=== PATIENT | female | born 1960 | race Caucasian/White ===

== ENCOUNTER 2017-07-26 05:46 | Day surgery (SDC) | payer OTHER ==
[2017-07-25 13:27] VITALS: BMI 26.6
[2017-07-26] MEDS ORDERED: Lidocaine 1% w/Epinephrine 1:200K 30 ML VIAL ONE (06:36)
[2017-07-26] MEDS ORDERED: methylPREDNISolone Acetate 40 mg/ml Vial ONE (06:36)
[2017-07-26] MEDS ORDERED: Lidocaine 1% (PF) 30 ML VIAL ONE (06:36)
[2017-07-26] MEDS ORDERED: Fentanyl 100 MCG/2 ML VIAL ONE (06:42)
[2017-07-26 06:46] LABS: Mean Platelet Volume 7.9 fL (7.4-10.4); Red Blood Cell (RBC) Count 4.65 mill/uL (4.20-5.40); White Blood Cell (WBC) Count 5.6 thou/uL (4.8-10.8)
[2017-07-26] MEDS ORDERED: CEFAZOLIN/Water 2 GM/20 ML SYRINGE ONE (06:57)
[2017-07-26] MEDS ORDERED: Midazolam HCl 2 mg/2 ml Vial ONE (07:05)
[2017-07-26] MEDS ORDERED: Promethazine HCl 25 MG/ML VIAL ONE (07:10)
[2017-07-26] MEDS ORDERED: Ondansetron HCl/PF 4 MG/2 ML Vial ONE (07:12)
--- NOTE | 2017-07-26 08:19 | OP ---
DATE OF PROCEDURE: 07/26/2017 PREOPERATIVE DIAGNOSES: 1. Right thumb carpometacarpal arthritis. 2. Right carpal tunnel syndrome. POST OPERATIVE DIAGNOSES: 1. Right thumb carpometacarpal arthritis. 2. Right carpal tunnel syndrome. PROCEDURES PERFORMED: 1. Right thumb carpometacarpal joint steroid injection. 2. Right open carpal tunnel release. 3. Placement of short arm volar splint, right upper extremity. SURGEON: Edison Olmedo M.D. ATMOSPHERIC DRIER TENDER: None. BLOOD LOSS: Minimal. COMPLICATIONS: None. ANESTHESIA: She had TIVA with local. DISPOSITION: She went to day stay in stable condition. INDICATIONS: A 56-year-old female who comes in with a long-term carpal tunnel syndrome and pain in h er CMC joint of the right thumb. At this time, she opted for surgery. DESCRIPTION OF PROCEDURE: After all appropriate consent forms were explained and signed, she was valerie en back to the operating room and at this time was given TIVA with local. Tourniquet was placed on t he right arm and the arm was prepped and draped in the standard surgical fashion. At this time, a ne edle was used to localize the right thumb CMC joint and once it was localized, 40 mg of Depo-Medrol w as injected without complication. We then turned our attention to the carpal tunnel release. Incisi on was drawn out and infiltrated with plain lidocaine. Limb was exsanguinated and the tourniquet was taken up to 250 mmHg. At this time, using Loupe magnification, a 15 blade was used to incise down t hrough skin. Bipolar cautery was used to coagulate any brisk venous bleeding. We then placed a smal l hemostat to protect the underlying median nerve and transected the transverse carpal ligament using multiple 15 blades as well as scissors. Once this was done, a small finger was inserted to palpate for any remaining bands. At this time, a moist Ray-Liban sponge was placed into the wound. Tourniquet was let down and pressure was held. Bipolar cautery used to coagulate any brisk venous bleeding. T he wound was then irrigated with saline solution and we then evaluated the nerve. The nerve was foun d to be significantly injected, the nerve was intact, there were no masses noted, and the underlying flexor tendons were in good condition. At this time, we irrigated and dried the wound. We then plac ed multiple nylon stitches to close the incision. A bulky sterile hand dressing and a small volar sp lint were then made. The patient was then awakened and taken to recovery in stable condition. All c ounts were correct at the end of the case. The patient received preoperative IV antibiotics.
[2017-07-26] MEDS ORDERED: Lidocaine 1% PF 5 ML VIAL ONE (16:01)
[2017-07-26] MEDS ORDERED: Dexamethasone 20 MG/5 ML VIAL ONE (16:01)
[2017-07-26] MEDS ORDERED: Ketorolac Tromethamine 30 MG/ML VIAL ONE (16:01)
[2017-07-26] MEDS ORDERED: Propofol 200 MG/20 ML VIAL ONE (16:01)
== END 2017-07-26 09:40 | disposition home or self-care (01) ==
LOC: SDC 05:46
PROVIDERS: ATTEND Orthopaedic Surgery
PROC: 3E0U33Z Introduction of Anti-inflammatory into Joints, Percutaneous Approach (ICD-10-PCS; principal; 2017-07-26)
PROC: 01N50ZZ Release Median Nerve, Open Approach (ICD-10-PCS; principal; 2017-07-26)
DX: G56.01 Carpal tunnel syndrome, right upper limb (principal); M18.11 Unilateral primary osteoarthritis of first carpometacarpal joint, right hand; E03.9 Hypothyroidism, unspecified; Z79.899 Other long term (current) drug therapy; Z98.890 Other specified postprocedural states
CPT/HCPCS: 36415; 85027; J1030; J1100; J1885; J2001; J2250; J2405; J2550; J2704; J3010

== ENCOUNTER 2017-10-16 10:11 | Outpatient (CLI) | payer OTHER | END 2017-10-16 10:12 | disposition home or self-care (01) | LOC: BICMAMMO 10:11 | PROVIDERS: ATTEND Obstetrics & Gynecology | DX: Z12.31 Encounter for screening mammogram for malignant neoplasm of breast (principal); Z80.3 Family history of malignant neoplasm of breast | CPT/HCPCS: 77063; 77067 ==

== ENCOUNTER 2020-01-18 08:44 | Outpatient (CLI) | payer BC, OTHER ==
[2020-01-18 14:51] LABS: #Eosinphils 0.1 thou/uL (0.0-0.7); #Monocytes 0.5 thou/uL (0.11-0.59); #Neutrophils 3.5 thou/uL (1.40-6.50); %Basophils 0.7 % (0.0-1.0); %Eosinophils 1.2 % (0.0-10.0); %Lymphocytes 32.6 % (21.0-51.0); %Monocytes 8.4 % (0.0-10.0); %Neutrophils 57.1 % (42.0-75.0); Hemoglobin 15.4 g/dL (12.0-16.0); Mean Corpuscular HGB CONC 34.8 g/dL (32.0-36.0); Mean Corpuscular Hemoglobin 33.1 pg (27.0-31.0); Mean Corpuscular Volume 95.2 fL (78.0-98.0); Mean Platelet Volume 8.7 fL (7.4-10.4); Platelet Count 280 thou/uL (130-400); RBC Distribution Width 11.3 % (11.5-14.5); Red Blood Cell (RBC) Count 4.67 mill/uL (4.20-5.40); White Blood Cell (WBC) Count 6.2 thou/uL (4.8-10.8)
[2020-01-18 15:00] LABS: Bacteria/HPF None Seen HPF (None Seen); Bilirubin Negative (Negative); Blood, Urine Negative (Negative); Clarity Clear (Clear); Glucose, Urine (Dipstick) Normal (Negative); Leukocyte Negative Leu/uL (Negative); Nitrite Negative (Negative); Protein, Urine (Dipstick) Negative (Neg-Trace); RBC/HPF 0-3 HPF (0-3); Squamous Epithelial 0-3 HPF (0-3); Urobilinogen Normal mg/dL (Less than 2); WBC/HPF 0-3 HPF (0-3)
[2020-01-18 15:11] LABS: Anion Gap 11 mmol/L (10-20); BUN (Urea Nitrogen) 12 mg/dL (9.8-20.1); Calc. Creatinine Clearance 0 mL/min (70-130); Calcium 8.8 mg/dL (7.8-10.44); Carbon Dioxide 27 mmol/L (22-29); Chloride 105 mmol/L (98-107); Estimated GFR-MDRD 62; Glucose 128 mg/dL (70-105); Potassium 3.9 mmol/L (3.5-5.1); Sodium 139 mmol/L (136-145)
[2020-01-19 18:39] LABS: SARS-CoV-2 MS2 Positive; SARS-CoV-2 N Gene Negative; SARS-CoV-2 S Gene Negative; SARS-CoV-2 orf1ab Negative
== END 2020-01-18 08:45 | disposition home or self-care (01) ==
LOC: LABBT 08:44
PROVIDERS: ATTEND Orthopaedic Surgery Hand Surgery
DX: Z01.818 Encounter for other preprocedural examination (principal); Z11.59 Encounter for screening for other viral diseases; M18.11 Unilateral primary osteoarthritis of first carpometacarpal joint, right hand
CPT/HCPCS: 80048; 81001; 85025; 87635; 93005; 93010; U0003

== ENCOUNTER 2020-01-22 05:39 | Day surgery (SDC) | payer BC ==
[2020-01-18 13:34] VITALS: BMI 28.0
[2020-01-22] MEDS ORDERED: Bupivacaine PF 0.5% 30 ML VIAL ONE (06:39)
[2020-01-22] MEDS ORDERED: Betamet Acet/Betamet Na Ph 30 MG/5 ML VIAL ONE (06:39)
[2020-01-22] MEDS ORDERED: Bacitracin Zinc Ointment 30 gm TUBE ONE (06:39)
[2020-01-22] MEDS ORDERED: Midazolam HCl 2 mg/2 ml Vial ONE (06:41)
[2020-01-22] MEDS ORDERED: Lidocaine 1% (PF) 30 ML VIAL ONE (06:41)
[2020-01-22] MEDS ORDERED: Fentanyl 100 MCG/2 ML VIAL ONE ×2 (06:41→06:54)
[2020-01-22] MEDS ORDERED: Famotidine/PF 20 mg/2ml Vial ONE (06:47)
[2020-01-22] MEDS ORDERED: Meperidine HCl/PF 25 MG/ML VIAL ONE (07:03)
[2020-01-22] MEDS ORDERED: Zolpidem Tartrate 5 MG TAB PO PRN (07:45)
[2020-01-22] MEDS ORDERED: traMADol HCl 50 MG TAB PO PRN ×2 (07:45)
[2020-01-22] MEDS ORDERED: HYDROcodone/Acetaminophen 5/325 mg Tablet PO PRN ×2 (07:45)
[2020-01-22] MEDS ORDERED: Promethazine HCl 25 MG/ML VIAL IM PRN (07:45)
[2020-01-22] MEDS ORDERED: Ondansetron PF 4 MG/2 ML Vial IVP PRN (07:45)
[2020-01-22] MEDS ORDERED: Ropivacaine 0.2% 550 ML 550 ML NERVE BLCK SCH (07:45)
--- NOTE | 2020-01-22 10:45 | RAD ---
Exam: XR Finger(s) Rt Min 2 View HISTORY: Right thumb arthroplasty COMPARISON: 01/18/2020 FINDINGS: 4 intraoperative fluoroscopic images of the right wrist and thumb are submitted. Provided fluoroscopic images demonstrate metallic pin overlying the metacarpal phalangeal joint of th e thumb. Images demonstrate removal of the trapezium bone, and there is a metallic pin overlying the bases of the metacarpal of the thumb and index finger. Correlation with intraoperative findings i s recommended. Fluoroscopy: Time-26 seconds Dose 0.0431 mGy centimeter squared
[2020-01-22] MEDS ORDERED: Ketorolac Tromethamine 30 MG/ML VIAL IVP SCH (12:00)
[2020-01-22] MEDS ORDERED: EPHEDRINE 25 MG/5 ML SYRINGE ONE (13:38)
[2020-01-22] MEDS ORDERED: Dexamethasone 20 MG/5 ML VIAL ONE (13:38)
[2020-01-22] MEDS ORDERED: Ropivacaine 0.2% HCl/PF (40 MG/20 ML VIAL) ONE (13:38)
[2020-01-22] MEDS ORDERED: PHENYLEPHRINE-NS 100 MCG/ML 10 ML SYRINGE ONE (13:38)
[2020-01-22] MEDS ORDERED: Lidocaine 1% PF 5 ML VIAL ONE (13:38)
[2020-01-22] MEDS ORDERED: Ketorolac Tromethamine 30 MG/ML VIAL ONE (13:38)
[2020-01-22] MEDS ORDERED: Ondansetron PF 4 MG/2 ML Vial ONE (13:38)
[2020-01-22] MEDS ORDERED: Metoclopramide HCl 10 MG/2 ML VIAL ONE (13:38)
[2020-01-22] MEDS ORDERED: Ropivacaine 0.5% HCl/PF (150 MG/30 ML VIAL) ONE (13:38)
[2020-01-22] MEDS ORDERED: PROPOFOL 200 MG/20 ML VIAL ONE (13:38)
[2020-01-22] MEDS ORDERED: diphenhydrAMINE 50 MG/ML VIAL ONE (13:38)
--- NOTE | 2020-01-25 11:25 | OP ---
DATE OF PROCEDURE: 01/22/2020 PREOPERATIVE DIAGNOSES: 1. Right thumb carpometacarpal joint osteoarthritis, severe. 2. Right thumb metacarpophalangeal joint capsule laxity, volar. FINDINGS: Marked laxity with almost 60 degrees of hyperextension of MP joint and CMC arthroplasty with a Z deformity showing over 70% wear at the base of the thumb metacarpal and 80% wear of chondral surface at the trapezium. PROCEDURES PERFORMED: 1. Complete trapeziectomy. 2. Right thumb carpometacarpal joint ligament replacement and tendon interposition. 3. Left thumb MP joint volar capsule repair. 4. C-arm supervision. SPECIMEN REMOVED: Trapezium removed, but not sent to lab. TOURNIQUET TIME: 129 minutes. ESTIMATED BLOOD LOSS: 20 mL. DESCRIPTION OF PROCEDURE: After successful general endotracheal anesthesia, the limb was prepped and draped. The patient then had time-out done appropriately. We then brought the C-arm to the field and identified the area, matched the side, matched the site, matched the planned procedure, the joint, and the finger. We outlined a zigzag incision centered on the A1 lavon in the palm of the right thumb and then we outlined a J-shaped approach to the CMC of the thumb for ligament replacement and tendon interposition as well as two incisions for harvesting the flexor carpi radialis. We first approached the thumb metacarpophalangeal joint. We made a zigzag incision, carried through skin and subcutaneous tissue, protecting both branches of this nerve to include the radial and then identified the A1 lavon. We released the A1 lavon. We retracted the flexor tendon radially and were able to visualize the capsule . We made a V-shaped capsular reefing incision and then oversewed the capsule in a [id number] using multiple 4-0 Prolene with two on each side of the incision proximally and on top of the distal end. Once this was in place, but not tied, the joint was flexed 30 degrees and then pinned with a K-wire under C-arm supervision. We had excellent fixation of the joint centered in the frontal sagittal plane and at 30 degrees sagittal plane. We then cut the wires below the skin and then we tied the sutures in a flexed MP joint position. Tourniquet was released, and we obtained hemostasis. We closed the skin with interrupted 4-0 nylon mattress pattern. We left a running tourniquet time and then we began the primary incision. This was carried through skin and subcutaneous tissue. We identified the neurovascular bundles, protected radial neurovascular bundle in excellent fashion. We then released. We then entered the point of base of thumb between the abductor pollicis and the extensor pollicis brevis, found the joint capsule and released it over the CMC joint and then tagged it with two separate 2-0 Vicryls. We used this to help retract it. We now dissected the capsule off the trapezium and exposed the entire carpometacarpal joint of the thumb. Then, released the scaphotrapezial capsule, we then placed under C-arm confirmation a 0.062 K-wire that was threaded in the trapezium, but not in the trapezoid. This was used to help elevate trapezium and we dissected the capsule volarly and ulnarly from the flexor carpi radialis sparing the tendon. We then lifted the remainder of the capsule off the flexor carpi radialis sparing the tendon, and now, we were able to dissect the trapezium free and also protected the radial artery. We lifted trapezium from the wound. We removed all osteophytes from the thumb base. The thumb base was quite dysplastic with an elevated ulnar side chondral surface of the thumb versus the elongated radial side. We then found the position 1.5 cm from the radial aspect of the thumb metacarpal base, removed osteophytes, and then from here, we were able to retract all the digital nerves, protect the extensor pollicis brevis, and then drilled a 2.5 mm hole from this lateral wall into the junction of the chondral surface and the metaphysis at the ulnar aspect of the thumb metacarpal. We then expanded to 3.5 mm. At all times, we protected the FCR. We then began to harvest the FCR using two previous outlined incisions each one approximately 6 cm from the other and the first one being 7 cm from the palmar flexion crease. We carried this proximal until we identified the tendon in all three incisions, released it from the musculotendinous junction. We removed excess muscle. Then, we slid it all the way into the wrist where we then trimmed it We used a curved grabbed the tendon, brought it from inside the defect out to the lateral wall. Once we brought the tendon through the lateral wall, we then placed the metacarpal in anatomic position frontal sagittal plane and K-wired through the index finger, thumb metacarpal to the index finger metacarpal, and this had excellent clinical radiograph position. We then passed the tendon underneath the abductor, secured it to the lateral wall x3 with 4-0 interrupted Prolene into the abductor pollicis longus x2 with interrupted 4-0 Prolene. We then secured it to the volar capsule, where we had previously placed a 3-0 Prolene deep in the volar capsule for the final portion of the anchovy procedure. Now that the wire was in place, we cut it and then brought it out through a separate stab wound in the skin off the suture line by 5 mm. We then took the remaining portion of the flexor carpi radialis tendon, performed the anchovy weave with the heavy 3-0 Prolene and tied this down deep in the defect created by the trapeziectomy. There were no STT joint changes. Once this was done, we released the tourniquet and we were able to obtain hemostasis. We closed the capsule with the 2-0 Vicryl. We used 2-0 Vicryl to reapproximate the thenar muscle back to the capsule and abductor pollicis. We then obtained hemostasis at this site and closed the skin with the wire cut just below the skin with interrupted 4-0 nylon in a mattress pattern. Combination of 4-0 Monocryl and 4-0 nylon was used to close the harvest incision for the flexor carpi radialis tendon. Now the 2 K-wires were below the skin, bulky dressing was applied with Bacitracin, Adaptic, 4x4, and the patient had the wound covered with a thumb spica splint to the level of the mid forearm without complication. Job ID: [id number]
== END 2020-01-22 14:16 | disposition home or self-care (01) ==
LOC: SDC 05:39
PROVIDERS: ATTEND Orthopaedic Surgery Hand Surgery
PROC: 0RR Upper Joints, Replacement (ICD-10-PCS; principal; 2020-01-22)
DX: M18.11 Unilateral primary osteoarthritis of first carpometacarpal joint, right hand (principal); M65.312 Trigger thumb, left thumb; Z79.899 Other long term (current) drug therapy
CPT/HCPCS: 76000; A4306; J0690; J0702; J1100; J1200; J1885; J2001; J2175; J2250; J2405; J2704; J2765; J2795; J3010; J3370; S0020; S0028